=== PATIENT | female | born 1945 | race Caucasian/White ===

== ENCOUNTER 2016-11-19 16:01 | Observation (INO) | payer BC, OTHER ==
[~2016-11-19] VITALS: Ht 172.7 cm; Wt 69.7 kg
[~2016-11-19 16:01] MED LIST: ADVAIR 100/501 DISK IH; ADVAIR 250-501 EACH IH; ADVAIR 250/501 DISK IH; AEROECLIPSE1 EACH MC; ALBUTEROL17 GM IH; ALBUTEROL2.5 MG/3 M IH; ALEVE PM CAPLE1 EACH PO; ALEVE220 MG PO; AMBIEN10 MG PO; AMIODARONE HCL200 MG PO; AMLODIPINE BESYL5 MG PO; AMOX TR-K CLV1 EAC4 PO; ASPIR-LOW81 MG PO; ASPIRIN325 MG PO; ATIVAN0.5 MG PO; AZITHROMYCIN500 M1 PO; BACLOFEN10 MG PO; BENTYL20 MG PO; BLADDER MEDICATION PO; BREO ELLIPTA I1 EACH IH; CARAFATE1 GM PO; CEFDINIR300 MG PO; CELEBREX200 MG PO; CHANTIX1 MG PO; CIPRO500 MG PO; CIPROFLOXACIN500 M1 PO; CLOPIDOGREL75 MG PO; COLACE100 MG PO; CYCLOBENZAPRINE10 MG PO; DILAUDID2 MG PO; DOXYCYCLINE HY100 M3 PO; DOXYCYCLINE HY100 MG PO; DUONEB 2.5-0.5 M3 ML AEROSOL; DUONEB 2.5-0.5 M3 ML IH; ECOTRIN325 MG PO; EMS NITROSTAT0.4 M1 S; ESTRACE2 MG PO; EXALGO16 MG PO; Exalgo PO; FENOFIBRATE160 M1 PO; FLAGYL500 MG PO; FLEXERIL10 MG PO; FLUOXETINE HCL40 MG PO; FUROSEMIDE40 MG PO; IMDUR30 MG PO; IMDUR60 MG PO; INCRUSE ELLI62.5 MCG IH; ISOSORBIDE MONO60 MG PO; K-DUR10 MEQ PO; K-DUR20 MEQ PO; KADIAN60 MG PO; LASIX40 MG PO; LEVAQUIN250 MG PO; LEVAQUIN500 MG PO; LEVAQUIN750 MG PO; LEVOFLOXACIN750 MG PO; LIORESAL10 MG PO; LO-DOSE ASPIRIN81 M1 PO; LOFIBRA,TRIGLI160 MG PO; LOPRESSOR25 MG PO; LORAZEPAM0.5 MG PO; LYRICA100 MG PO; LYRICA75 MG PO; MEDROL DOSEPAK4 MG PO; METOPROLOL TART25 MG PO; MORPHINE SULFAT15 M1 PO; MORPHINE SULFAT15 MG PO; MORPHINE SULFAT30 M2 PO; MORPHINE SULFAT60 MG PO; MOTRIN IB200 MG PO; MS CONTIN,ORAMO60 MG PO; MUCINEX600 MG PO; NAPROSYN500 MG PO; NAPROXEN500 MG PO; NICODERM CQ1 EAC1 TD; NICOTINE PATCH1 EAC2 TD; NORVASC5 MG PO; Norvasc PO; OMEPRAZOLE20 MG PO; OMEPRAZOLE40 M1 PO; OXYCODONE HCL10 MG PO; OXYCODONE HCL15 MG PO; OXYCONTIN60 MG PO; PANTOPRAZOLE SO40 MG PO; PERCOCET 5-3251 EACH PO; PERCOCET 5/31 TABLET PO; PLAVIX75 MG PO; PRAVASTATIN SOD40 MG PO; PREDNISONE10 MG PO; PREDNISONE20 MG PO; PREDNISONE5 MG PO; PRILOSEC20 MG PO; PRILOSEC40 MG PO; PROAIR HFA8.5 GM IH; PROVENTIL HFA6.7 GM IH; PROVENTIL,2.5 MG/3 M IH; PROZAC40 MG PO; PYRIDIUM100 MG PO; RANITIDINE HCL300 MG PO; RESTORIL15 MG PO; RESTORIL30 MG PO; SENOKOT S,PE1 TABLET PO; SPIRIVA RESPIMAT4 GM IH; SPIRIVA1 INHALATI IH; TEMAZEPAM30 MG PO; TOPROL XL50 MG PO; TYLENOL EXTRA500 MG PO; VALIUM5 MG PO; VENTOLIN HFA18 GM IH; VYTORIN 10-401 EACH PO; VYTORIN 10/41 TABLET PO; XANAX0.25 MG PO; XANAX0.5 MG PO; ZANAFLEX4 M1 PO; ZANAFLEX4 MG PO; ZANTAC150 M1 PO; ZANTAC300 MG PO; ZOLOFT100 M1 PO; ZOLPIDEM TARTRA10 MG PO; Zantac PO
[2016-11-19 16:40] LABS: EOSINOPHIL (%) 0.2 % (0-5); HEMATOCRIT 43.6 % (36.0-46.0); IMMATURE GRANULOCYTE (%) 0.4 % (0.0-0.7); MCH 29.9 PG (29.0-34.0); MCHC 32.3 G/DL (30.0-36.0); MCV 92.6 FL (83-99); MEAN PLAT.VOLUME 11.3 uM^3 (9.5-12.4); MONOCYTE (%) 1.6 % (3-12); MONOCYTE COUNT 0.2 K/uL (0-0.8); NEUTROPHIL (%) 86.9 % (45-76); PLATELET COUNT 184 K/uL (156-360); RBC DIS.WIDTH-CV 13.1 % (11.8-14.6); RBC DIS.WIDTH-SD 44.7 % (39-53); RED BLOOD COUNT 4.71 M/uL (3.80-5.20); WHITE BLOOD COUNT 9.2 K/uL (4.1-10.2)
[2016-11-19 17:02] LABS: CHLORIDE 105 mEq/L (99-109); POTASSIUM 3.7 mEq/L (3.7-5.4); SODIUM 137 mEq/L (136-147)
[2016-11-19 17:03] LABS: GLUCOSE 109 mg/dL (70-99)
[2016-11-19 17:05] LABS: ANION GAP 9 MEQ/L (2-14)
[2016-11-19 17:07] LABS: GFR ESTIMATE (CALCULATED) > 59 mL/min/
[2016-11-19 17:08] LABS: UREA NITROGEN (BUN) 17 mg/dL (9-23)
[2016-11-19 17:12] LABS: TROP-I INTERPRETATION NEGATIVE; TROPONIN-I < 0.01 ng/mL (0.0-0.30)
[2016-11-19] MEDS ORDERED: ZOLOFT25 MG PO (18:26)
[2016-11-19 18:49] LABS: ADD MIUA? YES; BILIRUBIN NEGATIVE; BLOOD MODERATE; COLOR YELLOW ((YELLOW)); GLUCOSE (STRIP) NEGATIVE; KETONES 20; LEUKOCYTES TRACE; NITRITE POSITIVE; PROTEIN (STRIP) 30; SPECIFIC GRAVITY 1.016 (1.000-1.030); UROBILINOGEN 0.2 MG/DL (0.2-1.0)
[2016-11-19 19:11] LABS: CASTS PRESENT /LPF; EPITHELIAL CELLS 1+ /HPF; HYALINE CASTS RARE /LPF; MUCUS NONE SEEN /LPF
[2016-11-19 19:12] LABS: BACTERIA 4+ /HPF; WHITE BLOOD CELLS 0-5 /HPF (0-5)
[2016-11-19 22:18] VITALS: BP 133/80
[2016-11-20 00:45] VITALS: BP 122/61
[2016-11-20 04:00] VITALS: BP 138/62
[2016-11-20 08:35] VITALS: BP 154/67
[2016-11-20 12:18] VITALS: BP 141/73
[2016-11-20] MEDS ORDERED: LEVOFLOXACIN500 MG PO (15:41)
[2016-11-20] MEDS ORDERED: PRIMIDONE50 MG PO (16:19)
[2016-11-20 16:31] VITALS: BP 122/58
== END 2016-11-20 18:12 | disposition home or self-care (01) ==
LOC: EME 16:01 → EDOF 20:22 → 5WEST 20:22
PROVIDERS: Emergency Medicine
DX: R41.82 Altered mental status, unspecified (principal); N39.0 Urinary tract infection, site not specified; R53.1 Weakness; R47.81 Slurred speech; I25.10 Atherosclerotic heart disease of native coronary artery without angina pectoris; G89.4 Chronic pain syndrome; Z95.5 Presence of coronary angioplasty implant and graft; J44.9 Chronic obstructive pulmonary disease, unspecified; Z99.81 Dependence on supplemental oxygen; K21.9 Gastro-esophageal reflux disease without esophagitis; F17.200 Nicotine dependence, unspecified, uncomplicated; I45.10 Unspecified right bundle-branch block; E78.5 Hyperlipidemia, unspecified; M54.5 Low back pain; G25.0 Essential tremor
CPT/HCPCS: 70450; 71020; 80048; 81003; 83605; 84484; 85025; 87040; 87077; 87086; 87186; 93005; 93880; 94640; 94640 76; 94799; 99202; 99281; 99285; G0378; G8978 GP CJ; G8979 GP CI; G8980 CJ; G8987 GO CL; G8988 GO CH; G8989 GO CL; J1956; J7030

== ENCOUNTER 2016-11-27 11:55 | Inpatient (IN) | payer BC, OTHER ==
[~2016-11-27] VITALS: Ht 172.7 cm; Wt 73.2 kg
[~2016-11-27 11:55] MED LIST changes: +LEVOFLOXACIN500 MG PO; +PRIMIDONE50 MG PO; +ZOLOFT25 MG PO
[2016-11-27 13:01] LABS: BASE EXCESS 4.7 mEq/L (-3 to +3); BICARBONATE 31.8 mEq/L (22-26); CARBOXY HGB 3.4 % (0-5); METHEMOGLOBIN 0.8 % (0-1.5); PCO2 59 mm Hg (35-45); PO2 80 mm Hg (80-100); pH 7.34 (7.35-7.45)
[2016-11-27 13:02] LABS: COMMENTS - BLOOD GASES A+C+; DEVICE NV; O2 FLOW 1 L/MIN; SITE LR; TOTAL RESP RATE 12 resp/min
[2016-11-27 13:20] LABS: HEMATOCRIT 38.2 % (36.0-46.0); MCH 29.8 PG (29.0-34.0); MCHC 31.2 G/DL (30.0-36.0); MCV 95.5 FL (83-99); RBC DIS.WIDTH-CV 13.5 % (11.8-14.6); RBC DIS.WIDTH-SD 47.6 % (39-53); WHITE BLOOD COUNT 7.2 K/uL (4.1-10.2)
[2016-11-27 13:28] LABS: CHLORIDE 106 mEq/L (99-109); POTASSIUM 4.1 mEq/L (3.7-5.4); SODIUM 141 mEq/L (136-147)
[2016-11-27 13:30] LABS: GLUCOSE 92 mg/dL (70-99)
[2016-11-27 13:31] LABS: ANION GAP 7 MEQ/L (2-14)
[2016-11-27 13:34] LABS: GFR ESTIMATE (CALCULATED) > 59 mL/min/
[2016-11-27 13:35] LABS: TROP-I INTERPRETATION NEGATIVE; TROPONIN-I < 0.01 ng/mL (0.0-0.30); UREA NITROGEN (BUN) 8 mg/dL (9-23)
[2016-11-27 13:36] LABS: INTER. NORMALIZED RATIO 1.1; PROTHROMBIN TIME 11.1 (9.2-11.2); PTT 28.3 (25-32)
[2016-11-27 13:51] LABS: ADD MIUA? YES; BILIRUBIN NEGATIVE; BLOOD SMALL; COLOR YELLOW ((YELLOW)); GLUCOSE (STRIP) NEGATIVE; KETONES NEGATIVE; LEUKOCYTES NEGATIVE; NITRITE NEGATIVE; PROTEIN (STRIP) NEGATIVE; SPECIFIC GRAVITY 1.006 (1.000-1.030); UROBILINOGEN 0.2 MG/DL (0.2-1.0)
[2016-11-27 13:53] LABS: BACTERIA NONE SEEN /HPF; EPITHELIAL CELLS RARE /HPF; MUCUS TRACE /LPF; RED BLOOD CELLS 0-5 /HPF (0-5); WHITE BLOOD CELLS 0-5 /HPF (0-5)
[2016-11-27 14:07] LABS: MEAN PLAT.VOLUME 12.3 uM^3 (9.5-12.4); PLAT.SUFFICIENCY ADEQUATE; PLATELET COUNT 159 K/uL (156-360)
[2016-11-27 18:38] VITALS: BP 129/57
[2016-11-27 19:45] LABS: TROP-I INTERPRETATION NEGATIVE; TROPONIN-I < 0.01 ng/mL (0.0-0.30)
[2016-11-27 20:16] VITALS: BP 125/56
[2016-11-28 01:06] VITALS: BP 109/59
[2016-11-28 01:27] LABS: TROP-I INTERPRETATION NEGATIVE; TROPONIN-I < 0.01 ng/mL (0.0-0.30)
[2016-11-28 04:17] VITALS: BP 98/49
[2016-11-28 05:39] LABS: EOSINOPHIL (%) 3.8 % (0-5); EOSINOPHIL COUNT 0.2 K/uL (0-0.3); HEMATOCRIT 34.1 % (36.0-46.0); IMMATURE GRANULOCYTE (%) 0.3 % (0.0-0.7); INSTRUMENT ABS NEUTROPHIL CT 3.7 K/uL; LYMPHOCYTE COUNT 1.7 K/uL (1.0-2.8); MCH 29.7 PG (29.0-34.0); MCHC 31.4 G/DL (30.0-36.0); MCV 94.7 FL (83-99); MEAN PLAT.VOLUME 12.5 uM^3 (9.5-12.4); MONOCYTE (%) 5.4 % (3-12); MONOCYTE COUNT 0.3 K/uL (0-0.8); NEUTROPHIL (%) 61.6 % (45-76); NEUTROPHIL COUNT 3.7 K/uL (1.8-6.4); PLATELET COUNT 142 K/uL (156-360); RBC DIS.WIDTH-CV 13.4 % (11.8-14.6); RBC DIS.WIDTH-SD 46.6 % (39-53)
[2016-11-28 06:01] LABS: ANION GAP 5 MEQ/L (2-14); CHLORIDE 103 MEQ/L (99-109); GFR ESTIMATE (CALCULATED) > 59 mL/min/; GLUCOSE 94 mg/dL (70-99); HDL CHOLESTEROL 22 MG/DL (Desirable>=50); LDL CHOLESTEROL 84 mg/dL (Desirable<100); NON-HDL CHOLESTEROL 107 mg/dL (Desirable<160); POTASSIUM 3.8 MEQ/L (3.7-5.4); SAMPLE HEMOLYSIS CHECK 0; SAMPLE ICTERIC CHECK 0; SAMPLE LIPEMIA CHECK 0; SODIUM 138 MEQ/L (136-147); TOTAL CHOLESTEROL 129 mg/dL (Desirable<200); TRIGLYCERIDES 115 MG/DL (Normal: <150); UREA NITROGEN (BUN) 8 mg/dL (9-23)
[2016-11-28 06:42] LABS: Estimated Average Glucose 105 mg/dL (70-123); HEMOGLOBIN A1c (GLYCOHEMOGLOB) 5.3 % HGB (Below 5.7)
[2016-11-28 08:00] VITALS: BP 112/52
[2016-11-28 12:00] VITALS: BP 106/51
[2016-11-28 14:54] VITALS: BP 110/74
[2016-11-28 20:00] VITALS: BP 98/49
[2016-11-29] VITALS: BP 106/49
[2016-11-29 04:00] VITALS: BP 104/53
[2016-11-29 07:52] VITALS: BP 103/53
[2016-11-29 11:23] VITALS: BP 99/50
[2016-11-29 15:13] VITALS: BP 110/56
[2016-11-29 20:00] VITALS: BP 107/65
[2016-11-30] VITALS: BP 110/66
[2016-11-30 03:47] VITALS: BP 111/56
[2016-11-30 08:13] VITALS: BP 95/47
[2016-11-30 12:52] VITALS: BP 94/45
== END 2016-11-30 15:34 | disposition home health service (06) | DRG 948 ==
LOC: EME 11:55 → 5SOUTH 16:05 → EDOF 16:05 → 5SOUTH 17:51
PROVIDERS: Emergency Medicine; Physician Assistant
DX: R41.0 Disorientation, unspecified (principal); L89.210 Pressure ulcer of right hip, unstageable; L89.151 Pressure ulcer of sacral region, stage 1; J96.11 Chronic respiratory failure with hypoxia; I27.2 Other secondary pulmonary hypertension; R00.1 Bradycardia, unspecified; F11.20 Opioid dependence, uncomplicated; F41.9 Anxiety disorder, unspecified; J44.9 Chronic obstructive pulmonary disease, unspecified; Z99.81 Dependence on supplemental oxygen; I25.10 Atherosclerotic heart disease of native coronary artery without angina pectoris; I10 Essential (primary) hypertension; F17.210 Nicotine dependence, cigarettes, uncomplicated; R47.01 Aphasia; R62.7 Adult failure to thrive; Z95.5 Presence of coronary angioplasty implant and graft; G89.29 Other chronic pain; M54.9 Dorsalgia, unspecified; K21.9 Gastro-esophageal reflux disease without esophagitis; G43.909 Migraine, unspecified, not intractable, without status migrainosus; I25.2 Old myocardial infarction; F33.9 Major depressive disorder, recurrent, unspecified; G30.9 Alzheimer's disease, unspecified; F02.80 Dementia in other diseases classified elsewhere, unspecified severity, without behavioral disturbance, psychotic disturbance, mood disturbance, and anxiety; R53.1 Weakness; I44.0 Atrioventricular block, first degree; R25.1 Tremor, unspecified; I35.0 Nonrheumatic aortic (valve) stenosis; E78.5 Hyperlipidemia, unspecified; Z90.10 Acquired absence of unspecified breast and nipple; Z85.3 Personal history of malignant neoplasm of breast; Z87.81 Personal history of (healed) traumatic fracture; L89.510 Pressure ulcer of right ankle, unstageable; L89.891 Pressure ulcer of other site, stage 1; L89.621 Pressure ulcer of left heel, stage 1; L89.892 Pressure ulcer of other site, stage 2; R29.818 Other symptoms and signs involving the nervous system
CPT/HCPCS: 36600; 70450; 71010; 80048; 80061; 81003; 82803; 83036; 83605; 84484; 85025; 85027; 85610; 85730; 87040; 87086; 93005; 94640; 94640 76; 94799; 99202; 99281; 99285; J1650

== ENCOUNTER 2017-01-30 13:41 | Emergency (ER) | payer BC, OTHER ==
[~2017-01-30] VITALS: Ht 174 cm; Wt 68.1 kg
[2017-01-30 15:27] LABS: HEMATOCRIT 44.7 % (36.0-46.0); MCH 28.9 PG (29.0-34.0); MCHC 32.7 G/DL (30.0-36.0); MCV 88.3 FL (83-99); MEAN PLAT.VOLUME 10.9 uM^3 (9.5-12.4); PLATELET COUNT 214 K/uL (156-360); RBC DIS.WIDTH-CV 13.7 % (11.8-14.6); RBC DIS.WIDTH-SD 44.4 % (39-53); RED BLOOD COUNT 5.06 M/uL (3.80-5.20); WHITE BLOOD COUNT 8.5 K/uL (4.1-10.2)
[2017-01-30 15:46] LABS: TOTAL BILIRUBIN 0.3 mg/dL (0.0-1.0)
[2017-01-30 15:47] LABS: ALKALINE PHOSPHATASE 87 IU/L (3-129)
[2017-01-30 15:50] LABS: DIRECT BILIRUBIN 0.1 mg/dL (0.0-0.3)
[2017-01-30 15:51] LABS: LIPASE 17 U/L (1.0-51.0)
[2017-01-30] MEDS ORDERED: ULTRAM50 MG PO (19:30)
[2017-01-30 20:16] VITALS: BP 115/51
== END 2017-01-30 20:26 | disposition home or self-care (01) ==
LOC: EME 13:41
DX: R10.11 Right upper quadrant pain (principal); R07.9 Chest pain, unspecified; J44.9 Chronic obstructive pulmonary disease, unspecified; I10 Essential (primary) hypertension; I25.2 Old myocardial infarction; K21.9 Gastro-esophageal reflux disease without esophagitis; F17.200 Nicotine dependence, unspecified, uncomplicated
CPT/HCPCS: 76705; 80076; 83690; 85027; 93005; 99281; 99285; J7030

== ENCOUNTER 2017-02-01 14:45 | Emergency (ER) | payer BC, OTHER ==
[~2017-02-01] VITALS: Ht 172.7 cm; Wt 70.3 kg
[~2017-02-01 14:45] MED LIST changes: +ULTRAM50 MG PO
[2017-02-01 16:18] LABS: HEMATOCRIT 44.1 % (36.0-46.0); MCH 28.9 PG (29.0-34.0); MCHC 32.2 G/DL (30.0-36.0); MCV 89.6 FL (83-99); MEAN PLAT.VOLUME 10.6 uM^3 (9.5-12.4); PLATELET COUNT 255 K/uL (156-360); RBC DIS.WIDTH-CV 13.7 % (11.8-14.6); RBC DIS.WIDTH-SD 45.2 % (39-53); RED BLOOD COUNT 4.92 M/uL (3.80-5.20)
[2017-02-01 16:28] LABS: CHLORIDE 106 mEq/L (99-109)
[2017-02-01 16:29] LABS: SODIUM 141 mEq/L (136-147)
[2017-02-01 16:31] LABS: GLUCOSE 116 mg/dL (70-99)
[2017-02-01 16:32] LABS: ANION GAP 10 MEQ/L (2-14)
[2017-02-01 16:33] LABS: TOTAL BILIRUBIN 0.3 mg/dL (0.0-1.0)
[2017-02-01 16:34] LABS: ALKALINE PHOSPHATASE 89 IU/L (3-129); GFR ESTIMATE (CALCULATED) > 59 mL/min/
[2017-02-01 16:35] LABS: ADD MIUA? YES; BILIRUBIN NEGATIVE; BLOOD SMALL; COLOR YELLOW ((YELLOW)); GLUCOSE (STRIP) NEGATIVE; KETONES NEGATIVE; LEUKOCYTES TRACE; NITRITE NEGATIVE; PROTEIN (STRIP) 30; SPECIFIC GRAVITY 1.012 (1.000-1.030); UROBILINOGEN 0.2 MG/DL (0.2-1.0)
[2017-02-01 16:36] LABS: UREA NITROGEN (BUN) 12 mg/dL (9-23)
[2017-02-01 16:41] LABS: LIPASE 20 U/L (1.0-51.0)
[2017-02-01 16:41] LABS: BACTERIA NONE SEEN /HPF; EPITHELIAL CELLS RARE /HPF; HYALINE CASTS 0-5 /LPF; MUCUS TRACE /LPF; UCUL ADDED? NO
[2017-02-01] MEDS ORDERED: CIPRO500 MG PO (18:34)
[2017-02-01 19:54] VITALS: BP 156/63
== END 2017-02-01 19:26 | disposition home or self-care (01) ==
LOC: EME 14:45
DX: N39.0 Urinary tract infection, site not specified (principal); R10.12 Left upper quadrant pain; R07.81 Pleurodynia; J44.9 Chronic obstructive pulmonary disease, unspecified; Z95.5 Presence of coronary angioplasty implant and graft; Z79.02 Long term (current) use of antithrombotics/antiplatelets; Z79.82 Long term (current) use of aspirin; F17.200 Nicotine dependence, unspecified, uncomplicated
CPT/HCPCS: 71010; 74177; 80053; 81003; 83690; 85027; 93005; 99281; 99284; J2270; J7030

== ENCOUNTER 2017-05-11 17:05 | Observation (INO) | payer BC, OTHER ==
[~2017-05-11] VITALS: Ht 174 cm; Wt 67.5 kg
[2017-05-11 17:31] LABS: HEMATOCRIT 44.4 % (36.0-46.0); MCH 30.3 PG (29.0-34.0); MCHC 33.8 G/DL (30.0-36.0); MCV 89.7 FL (83-99); MEAN PLAT.VOLUME 12.1 uM^3 (9.5-12.4); PLATELET COUNT 107 K/uL (156-360); RBC DIS.WIDTH-CV 14.1 % (11.8-14.6); RBC DIS.WIDTH-SD 46.3 % (39-53); RED BLOOD COUNT 4.95 M/uL (3.80-5.20); WHITE BLOOD COUNT 6.8 K/uL (4.1-10.2)
[2017-05-11 17:45] LABS: CHLORIDE 107 mEq/L (99-109); POTASSIUM 3.5 mEq/L (3.7-5.4); SODIUM 138 mEq/L (136-147)
[2017-05-11 17:47] LABS: GLUCOSE 137 mg/dL (70-99)
[2017-05-11 17:48] LABS: ANION GAP 11 MEQ/L (2-14)
[2017-05-11 17:50] LABS: GFR ESTIMATE (CALCULATED) 58 mL/min/
[2017-05-11 17:51] LABS: UREA NITROGEN (BUN) 17 mg/dL (9-23)
[2017-05-11 17:52] LABS: TROP-I INTERPRETATION NEGATIVE; TROPONIN-I 0.01 ng/mL (0.0-0.30)
[2017-05-11 19:39] LABS: ADD MIUA? YES; BILIRUBIN NEGATIVE; BLOOD SMALL; COLOR YELLOW ((YELLOW)); GLUCOSE (STRIP) NEGATIVE; KETONES NEGATIVE; LEUKOCYTES NEGATIVE; NITRITE NEGATIVE; PROTEIN (STRIP) NEGATIVE; SPECIFIC GRAVITY 1.005 (1.000-1.030); UROBILINOGEN 0.2 MG/DL (0.2-1.0)
[2017-05-11 20:05] LABS: BACTERIA RARE /HPF; CASTS NONE SEEN /LPF; EPITHELIAL CELLS 2+ /HPF; MUCUS NONE SEEN /LPF; RED BLOOD CELLS 0-5 /HPF (0-5); WHITE BLOOD CELLS 0-5 /HPF (0-5)
[2017-05-11 20:06] LABS: CRYSTALS NONE SEEN
[2017-05-11] MEDS ORDERED: ELAVIL50 MG PO (20:36)
[2017-05-11] MEDS ORDERED: DITROPAN5 MG PO (20:36)
[2017-05-11] MEDS ORDERED: NAPROSYN500 MG PO (20:37)
[2017-05-11] MEDS ORDERED: MYSOLINE50 MG PO (20:39)
[2017-05-11] MEDS ORDERED: RESTORIL30 MG PO (20:42)
[2017-05-11] MEDS ORDERED: MORPHINE SULFAT15 MG PO (20:42)
[2017-05-11] MEDS ORDERED: SANTYL30 GM TP (20:43)
[2017-05-11] MEDS ORDERED: PROTONIX40 MG PO (20:44)
[2017-05-12 00:22] VITALS: BP 135/60
[2017-05-12 00:52] LABS: TROP-I INTERPRETATION NEGATIVE; TROPONIN-I 0.03 ng/mL (0.0-0.30)
[2017-05-12 04:00] VITALS: BP 110/77
[2017-05-12 06:23] LABS: HEMATOCRIT 38.8 % (36.0-46.0); MCH 29.9 PG (29.0-34.0); MCHC 32.5 G/DL (30.0-36.0); MCV 92.2 FL (83-99); MEAN PLAT.VOLUME 12.3 uM^3 (9.5-12.4); PLATELET COUNT 96 K/uL (156-360); RBC DIS.WIDTH-CV 14.2 % (11.8-14.6); RBC DIS.WIDTH-SD 47.8 % (39-53); RED BLOOD COUNT 4.21 M/uL (3.80-5.20); WHITE BLOOD COUNT 5.6 K/uL (4.1-10.2)
[2017-05-12 06:24] LABS: ALKALINE PHOSPHATASE 54 IU/L (3-129); ANION GAP 4 MEQ/L (2-14); CHLORIDE 115 MEQ/L (99-109); GFR ESTIMATE (CALCULATED) > 59 mL/min/; SAMPLE HEMOLYSIS CHECK 0; SAMPLE ICTERIC CHECK 0; SAMPLE LIPEMIA CHECK 0; SODIUM 143 MEQ/L (136-147); TOTAL BILIRUBIN 0.5 MG/DL (0.0-1.0); UREA NITROGEN (BUN) 15 mg/dL (9-23)
[2017-05-12 06:26] LABS: GLUCOSE 81 mg/dL (70-99); POTASSIUM 4.5 MEQ/L (3.7-5.4)
[2017-05-12 06:27] LABS: TROP-I INTERPRETATION NEGATIVE; TROPONIN-I 0.04 ng/mL (0.0-0.30)
[2017-05-12 07:17] LABS: Estimated Average Glucose 120 mg/dL (70-123); HEMOGLOBIN A1c (GLYCOHEMOGLOB) 5.8 % HGB (Below 5.7)
[2017-05-12] MEDS ORDERED: CLOPIDOGREL75 MG PO (11:55)
[2017-05-12] MEDS ORDERED: PRAVACHOL40 MG PO (11:56)
[2017-05-12 11:57] VITALS: BP 103/52
== END 2017-05-12 16:17 | disposition home or self-care (01) ==
LOC: EME 17:05 → EDOF 22:32 → 5WEST 22:32 → EDOF 22:32 → ENRESERV 22:34 → EDOF 05-12 00:13 → 5WEST 05-12 00:15
PROVIDERS: Internal Medicine; Nurse Practitioner Family
DX: I95.1 Orthostatic hypotension (principal); E87.6 Hypokalemia; I25.10 Atherosclerotic heart disease of native coronary artery without angina pectoris; Z95.5 Presence of coronary angioplasty implant and graft; I25.2 Old myocardial infarction; I10 Essential (primary) hypertension; J44.9 Chronic obstructive pulmonary disease, unspecified; Z99.81 Dependence on supplemental oxygen; F17.210 Nicotine dependence, cigarettes, uncomplicated; E78.00 Pure hypercholesterolemia, unspecified; I35.0 Nonrheumatic aortic (valve) stenosis; I34.0 Nonrheumatic mitral (valve) insufficiency; J84.10 Pulmonary fibrosis, unspecified; F41.9 Anxiety disorder, unspecified; F32.9 Major depressive disorder, single episode, unspecified; G89.29 Other chronic pain; M54.9 Dorsalgia, unspecified; Z85.3 Personal history of malignant neoplasm of breast; Z90.710 Acquired absence of both cervix and uterus; Z90.12 Acquired absence of left breast and nipple; Z79.82 Long term (current) use of aspirin; D69.6 Thrombocytopenia, unspecified; K21.9 Gastro-esophageal reflux disease without esophagitis
CPT/HCPCS: 70450; 71020; 80048; 80053; 81003; 83036; 84484; 85027; 93005; 94640; 94799; 99202; 99281; 99285; G0378; G8978 GP CH; G8979 GP CH; G8980 GP CH; G8987 GO CH; G8988 GO CH; G8989 GO CH; J1644; J7030

== ENCOUNTER 2017-06-08 12:32 | Inpatient (IN) | payer BC, OTHER ==
[~2017-06-08] VITALS: Ht 175.3 cm; Wt 65.9 kg
[~2017-06-08 12:32] MED LIST changes: +DITROPAN5 MG PO; +ELAVIL50 MG PO; +MYSOLINE50 MG PO; +PRAVACHOL40 MG PO; +PROTONIX40 MG PO; +SANTYL30 GM TP
[2017-06-08 13:42] LABS: BASE EXCESS -1.8 mEq/L (-3 to +3); BICARBONATE 24.3 mEq/L (22-26); CARBOXY HGB 2.9 % (0-5); METHEMOGLOBIN 1.3 % (0-1.5); PO2 58 mm Hg (80-100); pH 7.34 (7.35-7.45)
[2017-06-08 13:43] LABS: COMMENTS - BLOOD GASES A+C+; DEVICE NC; O2 FLOW 4 L/MIN; PCO2 45 mm Hg (35-45); SITE LR
[2017-06-08 14:30] LABS: ADD MIUA? YES; BILIRUBIN NEGATIVE; BLOOD LARGE; COLOR YELLOW ((YELLOW)); GLUCOSE (STRIP) NEGATIVE; KETONES NEGATIVE; LEUKOCYTES MODERATE; NITRITE POSITIVE; PROTEIN (STRIP) NEGATIVE; SPECIFIC GRAVITY 1.006 (1.000-1.030); UROBILINOGEN 0.2 MG/DL (0.2-1.0)
[2017-06-08 14:33] LABS: MCH 30.5 PG (29.0-34.0); MCHC 33.1 G/DL (30.0-36.0); MCV 92.1 FL (83-99); MEAN PLAT.VOLUME 11.4 uM^3 (9.5-12.4); PLATELET COUNT 108 K/uL (156-360); RBC DIS.WIDTH-CV 13.9 % (11.8-14.6); RBC DIS.WIDTH-SD 47.6 % (39-53); RED BLOOD COUNT 4.56 M/uL (3.80-5.20); WHITE BLOOD COUNT 13.3 K/uL (4.1-10.2)
[2017-06-08 14:35] LABS: BACTERIA 3+ /HPF; EPITHELIAL CELLS RARE /HPF; MUCUS TRACE /LPF; RED BLOOD CELLS 15-20 /HPF (0-5); UCUL ADDED? YES; WHITE BLOOD CELLS 15-20 /HPF (0-5)
[2017-06-08 14:40] LABS: INTER. NORMALIZED RATIO 1.4; PROTHROMBIN TIME 16.2 SEC (10.2-12.9)
[2017-06-08 14:43] LABS: CHLORIDE 112 mEq/L (99-109); PTT 33.2 SEC (25-37)
[2017-06-08 14:44] LABS: POTASSIUM 4.2 mEq/L (3.7-5.4); SODIUM 142 mEq/L (136-147)
[2017-06-08 14:46] LABS: GLUCOSE 126 mg/dL (70-99)
[2017-06-08 14:47] LABS: ANION GAP 8 MEQ/L (2-14)
[2017-06-08 14:48] LABS: TOTAL BILIRUBIN 0.5 mg/dL (0.0-1.0)
[2017-06-08 14:49] LABS: ALKALINE PHOSPHATASE 61 IU/L (3-129); GFR ESTIMATE (CALCULATED) > 59 mL/min/
[2017-06-08 14:51] LABS: UREA NITROGEN (BUN) 27 mg/dL (9-23)
[2017-06-08 14:57] LABS: TROP-I INTERPRETATION NEGATIVE; TROPONIN-I 0.04 ng/mL (0.0-0.30)
[2017-06-08 15:35] LABS: ABS NEUTROPHIL COUNT 12.6; ANISOCYTOSIS 1+; ATYPICAL LYMPHOCYTE 3.5 %; BAND NEUTROPHILS 61.1 % (0-8.0); EOSINOPHIL ABS CT 0; GIANT PLATELETS 1+; INSTRUMENT ABS NEUTROPHIL CT 11.7 K/uL; LYMPHOCYTES 1.8 % (15.0-45.0); MACROCYTES 1+; MICROCYTOSIS 1+; PLAT.SUFFICIENCY DECREASED; SEG.NEUTROPHILS 33.6 % (46.0-76.0); SPHEROCYTES 2+
[2017-06-08 20:41] LABS: BASE EXCESS 0.9 mEq/L (-3 to +3); BICARBONATE 25.3 mEq/L (22-26); CARBOXY HGB 2.6 % (0-5); METHEMOGLOBIN 1.5 % (0-1.5); PCO2 39 mm Hg (35-45); PO2 55 mm Hg (80-100); SITE RIGHT RAD; pH 7.42 (7.35-7.45)
[2017-06-08 20:42] LABS: COMMENTS - BLOOD GASES C+; DEVICE NCHH; FI02 40 %; O2 FLOW 40 L/MIN; TOTAL RESP RATE 18 resp/min
[2017-06-09] VITALS (11 sets, daily range): BP systolic 97–123; BP diastolic 41–74
[2017-06-09 06:16] LABS: EOSINOPHIL (%) 0.2 % (0-5); HEMATOCRIT 40.4 % (36.0-46.0); IMMATURE GRANULOCYTE (%) 0.9 % (0.0-0.7); IMMATURE GRANULOCYTE COUNT 0.1 K/uL; INSTRUMENT ABS NEUTROPHIL CT 10.9 K/uL; LYMPHOCYTE COUNT 1.3 K/uL (1.0-2.8); MCH 29.7 PG (29.0-34.0); MCHC 32.4 G/DL (30.0-36.0); MCV 91.6 FL (83-99); MEAN PLAT.VOLUME 11.9 uM^3 (9.5-12.4); MONOCYTE (%) 2.1 % (3-12); MONOCYTE COUNT 0.3 K/uL (0-0.8); NEUTROPHIL (%) 86.6 % (45-76); NEUTROPHIL COUNT 10.9 K/uL (1.8-6.4); PLATELET COUNT 107 K/uL (156-360); RBC DIS.WIDTH-CV 14.1 % (11.8-14.6); RBC DIS.WIDTH-SD 47.7 % (39-53); RED BLOOD COUNT 4.41 M/uL (3.80-5.20); WHITE BLOOD COUNT 12.6 K/uL (4.1-10.2)
[2017-06-09 09:01] LABS: INTER. NORMALIZED RATIO 1.3; PROTHROMBIN TIME 14.9 SEC (10.2-12.9)
[2017-06-09 09:04] LABS: PTT 33.3 SEC (25-37)
[2017-06-09 09:11] LABS: BASE EXCESS -2.2 mEq/L (-3 to +3); BICARBONATE 23.2 mEq/L (22-26); CARBOXY HGB 1.6 % (0-5); METHEMOGLOBIN 1.4 % (0-1.5); PCO2 41 mm Hg (35-45); PO2 57 mm Hg (80-100); SITE LR; pH 7.36 (7.35-7.45)
[2017-06-09 09:12] LABS: COMMENTS - BLOOD GASES A+C+; DEVICE NCHH; FI02 40 %; O2 FLOW 40 L/MIN; TOTAL RESP RATE 22 resp/min
[2017-06-09 09:47] LABS: TROP-I INTERPRETATION NEGATIVE; TROPONIN-I 0.03 ng/mL (0.0-0.30)
[2017-06-09 09:58] LABS: CHLORIDE 113 MEQ/L (99-109); GFR ESTIMATE (CALCULATED) > 59 mL/min/; GLUCOSE 95 mg/dL (70-99); POTASSIUM 4.3 MEQ/L (3.7-5.4); SODIUM 145 MEQ/L (136-147); UREA NITROGEN (BUN) 28 mg/dL (9-23)
[2017-06-09 10:52] LABS: METH RESISTANT S AUREUS PCR POSITIVE (NEGATIVE)
[2017-06-09 11:00] LABS: PROBE CHECK PASS
[2017-06-09 16:37] LABS: TROP-I INTERPRETATION NEGATIVE; TROPONIN-I 0.04 ng/mL (0.0-0.30)
[2017-06-09 21:07] LABS: TROP-I INTERPRETATION NEGATIVE; TROPONIN-I 0.04 ng/mL (0.0-0.30)
[2017-06-10] VITALS (7 sets, daily range): BP systolic 96–117; BP diastolic 49–59
[2017-06-10 04:53] LABS: EOSINOPHIL (%) 0 % (0-5); IMMATURE GRANULOCYTE (%) 1.2 % (0.0-0.7); IMMATURE GRANULOCYTE COUNT 0.1 K/uL; INSTRUMENT ABS NEUTROPHIL CT 7.1 K/uL; LYMPHOCYTE COUNT 0.5 K/uL (1.0-2.8); MCH 30.3 PG (29.0-34.0); MCV 91.8 FL (83-99); MEAN PLAT.VOLUME 12.2 uM^3 (9.5-12.4); MONOCYTE (%) 1.2 % (3-12); MONOCYTE COUNT 0.1 K/uL (0-0.8); NEUTROPHIL (%) 91.2 % (45-76); NEUTROPHIL COUNT 7.1 K/uL (1.8-6.4); PLATELET COUNT 96 K/uL (156-360); RBC DIS.WIDTH-CV 14.2 % (11.8-14.6); RBC DIS.WIDTH-SD 48.6 % (39-53); RED BLOOD COUNT 4.03 M/uL (3.80-5.20); WHITE BLOOD COUNT 7.8 K/uL (4.1-10.2)
[2017-06-10 05:17] LABS: CHLORIDE 111 mEq/L (99-109); POTASSIUM 4.1 mEq/L (3.7-5.4); SODIUM 141 mEq/L (136-147)
[2017-06-10 05:20] LABS: ANION GAP 7 MEQ/L (2-14)
[2017-06-10 05:22] LABS: ALKALINE PHOSPHATASE 66 IU/L (3-129)
[2017-06-10 05:23] LABS: GFR ESTIMATE (CALCULATED) > 59 mL/min/
[2017-06-10 05:24] LABS: UREA NITROGEN (BUN) 29 mg/dL (9-23)
[2017-06-10 05:26] LABS: GLUCOSE 185 mg/dL (70-99); TOTAL BILIRUBIN 0.2 mg/dL (0.0-1.0)
[2017-06-11 04:00] VITALS: BP 131/62
[2017-06-11 06:08] LABS: HEMATOCRIT 37.3 % (36.0-46.0); MCH 29.6 PG (29.0-34.0); MCHC 32.2 G/DL (30.0-36.0); MCV 91.9 FL (83-99); MEAN PLAT.VOLUME 11.8 uM^3 (9.5-12.4); PLATELET COUNT 114 K/uL (156-360); RBC DIS.WIDTH-SD 47.9 % (39-53); RED BLOOD COUNT 4.06 M/uL (3.80-5.20); WHITE BLOOD COUNT 13.6 K/uL (4.1-10.2)
[2017-06-11 08:02] VITALS: BP 126/60
[2017-06-11] MEDS ORDERED: CYCLOBENZAPRINE5 MG PO (10:46)
[2017-06-11] MEDS ORDERED: IMDUR60 MG PO (10:50)
[2017-06-11] MEDS ORDERED: NICOTINE PATCH1 EAC2 TD (10:51)
[2017-06-11 15:59] VITALS: BP 118/56
[2017-06-11 19:32] VITALS: BP 117/59
[2017-06-11 23:19] VITALS: BP 102/50
[2017-06-12 03:55] VITALS: BP 125/58
[2017-06-12 07:28] VITALS: BP 124/64
[2017-06-12] MEDS ORDERED: LEVOFLOXACIN750 MG PO (09:34)
[2017-06-12] MEDS ORDERED: INCRUSE ELLI62.5 MCG IH (09:34)
[2017-06-12] MEDS ORDERED: VENTOLIN HFA18 GM IH (09:35)
[2017-06-12] MEDS ORDERED: DUONEB 2.5-0.5 M3 ML AEROSOL (09:35)
[2017-06-12] MEDS ORDERED: PRADAXA150 MG PO ×2 (09:35→12:31)
[2017-06-12] MEDS ORDERED: DILTIAZEM 24HR120 MG PO (09:36)
[2017-06-12] MEDS ORDERED: ADVAIR 250/501 DISK IH (09:37)
[2017-06-12] MEDS ORDERED: PREDNISONE10 MG PO (09:41)
[2017-06-12] MEDS ORDERED: BACTROBAN CREAM15 GM TP (10:02)
[2017-06-12 11:35] VITALS: BP 122/68
== END 2017-06-12 13:21 | disposition home or self-care (01) | DRG 871 ==
LOC: EME 12:32 → 4WEST 16:49 → EDOF 16:49 → 5EAST 16:49 → ENRESERV 16:51 → 5EAST 19:35 → ENRESERV 06-09 08:24 → CANRESERV 06-09 08:24 → ENRESERV 06-09 08:27 → 4WEST 06-09 09:00 → ENRESERV 06-10 15:58 → 5EAST 06-10 17:06 → ENPENDDIS 06-12 → 5EAST 06-12 13:21
PROVIDERS: Emergency Medicine; Hospitalist; Internal Medicine
DX: A41.9 Sepsis, unspecified organism (principal); R65.20 Severe sepsis without septic shock; N39.0 Urinary tract infection, site not specified; B96.1 Klebsiella pneumoniae [K. pneumoniae] as the cause of diseases classified elsewhere; G93.41 Metabolic encephalopathy; J96.21 Acute and chronic respiratory failure with hypoxia; J44.1 Chronic obstructive pulmonary disease with (acute) exacerbation; J44.0 Chronic obstructive pulmonary disease with (acute) lower respiratory infection; J18.9 Pneumonia, unspecified organism; E87.2 Acidosis; I48.92 Unspecified atrial flutter; I25.10 Atherosclerotic heart disease of native coronary artery without angina pectoris; D69.6 Thrombocytopenia, unspecified; I10 Essential (primary) hypertension; E78.00 Pure hypercholesterolemia, unspecified; K21.9 Gastro-esophageal reflux disease without esophagitis; F32.9 Major depressive disorder, single episode, unspecified; F41.9 Anxiety disorder, unspecified; G43.909 Migraine, unspecified, not intractable, without status migrainosus; E78.5 Hyperlipidemia, unspecified; I35.0 Nonrheumatic aortic (valve) stenosis; I27.29 Other secondary pulmonary hypertension; I27.81 Cor pulmonale (chronic); I48.91 Unspecified atrial fibrillation; I47.1 Supraventricular tachycardia; G89.4 Chronic pain syndrome; M54.9 Dorsalgia, unspecified; R33.9 Retention of urine, unspecified; F17.210 Nicotine dependence, cigarettes, uncomplicated; Z99.81 Dependence on supplemental oxygen; Z95.5 Presence of coronary angioplasty implant and graft; Z85.3 Personal history of malignant neoplasm of breast; Z79.82 Long term (current) use of aspirin; I25.2 Old myocardial infarction; Z91.041 Radiographic dye allergy status; Z79.02 Long term (current) use of antithrombotics/antiplatelets; Z79.891 Long term (current) use of opiate analgesic
CPT/HCPCS: 36600; 70450; 71010; 78582; 80048; 80053; 81003; 82803; 83605; 83880; 84484; 85025; 85027; 85379; 85610; 85730; 87040; 87077; 87086; 87186; 87502; 87641; 87801; 93005; 93970; 94010; 94640; 94640 76; 94760; 94799; 99202; 99281; 99285; A9540; A9567; J1650; J1956; J2920; J2930; J3370; J7030; J7050; J7512

== ENCOUNTER 2017-07-31 16:50 | Inpatient (IN) | payer BC, OTHER ==
[~2017-07-31] VITALS: Ht 172.7 cm; Wt 66.2 kg
[~2017-07-31 16:50] MED LIST changes: +BACTROBAN CREAM15 GM TP; +CYCLOBENZAPRINE5 MG PO; +DILTIAZEM 24HR120 MG PO; +PRADAXA150 MG PO
[2017-07-31 17:53] LABS: HEMATOCRIT 47.3 % (36.0-46.0); HEMOGLOBIN 15.9 G/DL (11.9-15.5); MCH 29.7 PG (29.0-34.0); MCHC 33.6 G/DL (30.0-36.0); MCV 88.4 FL (83-99); PLATELET COUNT 195 K/uL (156-360); RBC DIS.WIDTH-CV 13.5 % (11.8-14.6); RED BLOOD COUNT 5.35 M/uL (3.80-5.20); WHITE BLOOD COUNT 12.1 K/uL (4.1-10.2)
[2017-07-31 18:02] LABS: ALBUMIN 3.6 g/dL (3.2-4.8); CHLORIDE 106 mEq/L (99-109); POTASSIUM 4.6 mEq/L (3.7-5.4); SODIUM 137 mEq/L (136-147)
[2017-07-31 18:04] LABS: GLUCOSE 129 mg/dL (70-99); TOTAL PROTEIN 6.7 g/dL (6.4-8.3)
[2017-07-31 18:06] LABS: TOTAL BILIRUBIN 0.4 mg/dL (0.0-1.0)
[2017-07-31 18:08] LABS: ALKALINE PHOSPHATASE 86 IU/L (3-129); CREATININE 0.8 mg/dL (0.6-1.3); GFR ESTIMATE (CALCULATED) > 59 mL/min/
[2017-07-31 18:09] LABS: UREA NITROGEN (BUN) 13 mg/dL (9-23)
[2017-07-31 18:10] LABS: AST (GOT) 14 IU/L (2-34)
[2017-07-31 18:11] LABS: ALT (GPT) 9 IU/L (3-49)
[2017-07-31 19:08] LABS: LIPASE 17 U/L (1.0-51.0)
[2017-07-31 21:31] LABS: APPEARANCE CLEAR ((CLEAR)); BILIRUBIN NEGATIVE; BLOOD SMALL; COLOR YELLOW ((YELLOW)); GLUCOSE (STRIP) NEGATIVE; KETONES NEGATIVE; LEUKOCYTES NEGATIVE; NITRITE NEGATIVE; PROTEIN (STRIP) NEGATIVE; SPECIFIC GRAVITY 1.024 (1.000-1.030); UROBILINOGEN 0.2 MG/DL (0.2-1.0)
[2017-07-31 21:35] LABS: BACTERIA NONE SEEN /HPF; EPITHELIAL CELLS RARE /HPF; MUCUS NONE SEEN /LPF; RED BLOOD CELLS 15-20 /HPF (0-5); UCUL ADDED? NO; WHITE BLOOD CELLS 0-5 /HPF (0-5)
[2017-08-01] MEDS ORDERED: PRADAXA150 MG PO (00:28)
[2017-08-01] MEDS ORDERED: DILTIAZEM 24HR120 MG PO (00:29)
[2017-08-01] MEDS ORDERED: NAPROSYN500 MG PO (00:30)
[2017-08-01 02:39] VITALS: BP 117/57
[2017-08-01 12:05] VITALS: BP 82/46
[2017-08-01 14:33] VITALS: BP 88/52
[2017-08-01 17:05] VITALS: BP 86/48
[2017-08-01 20:02] VITALS: BP 90/50
[2017-08-01 23:23] VITALS: BP 89/47
[2017-08-02 10:22] LABS: BASOPHIL (%) 0.3 % (0-1); EOSINOPHIL (%) 4.9 % (0-5); EOSINOPHIL COUNT 0.3 K/uL (0-0.3); HEMATOCRIT 36.3 % (36.0-46.0); IMMATURE GRANULOCYTE (%) 0.2 % (0.0-0.7); LYMPHOCYTE (%) 42.9 % (15-42); LYMPHOCYTE COUNT 2.6 K/uL (1.0-2.8); MCH 29.9 PG (29.0-34.0); MONOCYTE (%) 5.1 % (3-12); MONOCYTE COUNT 0.3 K/uL (0-0.8); NEUTROPHIL (%) 46.6 % (45-76); NEUTROPHIL COUNT 2.8 K/uL (1.8-6.4); RBC DIS.WIDTH-SD 47.8 % (39-53); WHITE BLOOD COUNT 6.1 K/uL (4.1-10.2)
[2017-08-02 10:29] LABS: HEMOGLOBIN 11.6 G/DL (11.9-15.5); MCV 93.6 FL (83-99); RED BLOOD COUNT 3.88 M/uL (3.80-5.20)
[2017-08-02 10:36] LABS: CHLORIDE 109 MEQ/L (99-109); CREATININE 0.8 MG/DL (0.6-1.3); GFR ESTIMATE (CALCULATED) > 59 mL/min/; GLUCOSE 88 mg/dL (70-99); POTASSIUM 4.1 MEQ/L (3.7-5.4); SODIUM 140 MEQ/L (136-147); UREA NITROGEN (BUN) 15 mg/dL (9-23)
[2017-08-02 10:38] LABS: PLAT.SUFFICIENCY DECREASED
[2017-08-02 10:46] LABS: PLATELET COUNT 126 K/uL (156-360)
[2017-08-02 11:01] VITALS: BP 94/50
[2017-08-02 16:11] VITALS: BP 106/5
[2017-08-02 20:45] VITALS: BP 118/58
[2017-08-02 22:59] VITALS: BP 109/54
[2017-08-03 12:42] VITALS: BP 116/59
[2017-08-03 12:43] VITALS: BP 116/59; BP 180/90
[2017-08-03] MEDS ORDERED: LEVOFLOXACIN750 MG PO (13:55)
[2017-08-03] MEDS ORDERED: SEROQUEL50 MG PO (16:50)
== END 2017-08-03 18:34 | disposition home or self-care (01) | DRG 194 ==
LOC: EME 16:50 → EDOF 08-01 00:02 → ENRESERV 08-01 00:04 → 5WEST 08-01 01:23 → ENPENDDIS 08-03 → 5WEST 08-03 18:34
PROVIDERS: Hospitalist
DX: J18.9 Pneumonia, unspecified organism (principal); J98.11 Atelectasis; I48.92 Unspecified atrial flutter; L97.322 Non-pressure chronic ulcer of left ankle with fat layer exposed; E87.2 Acidosis; F33.9 Major depressive disorder, recurrent, unspecified; L97.422 Non-pressure chronic ulcer of left heel and midfoot with fat layer exposed; L97.413 Non-pressure chronic ulcer of right heel and midfoot with necrosis of muscle; J43.9 Emphysema, unspecified; K21.9 Gastro-esophageal reflux disease without esophagitis; K59.09 Other constipation; K52.9 Noninfective gastroenteritis and colitis, unspecified; K29.70 Gastritis, unspecified, without bleeding; K29.80 Duodenitis without bleeding; I73.9 Peripheral vascular disease, unspecified; I71.4 Abdominal aortic aneurysm, without rupture; I70.8 Atherosclerosis of other arteries; I71.2 Thoracic aortic aneurysm, without rupture; I70.0 Atherosclerosis of aorta; I48.2 Chronic atrial fibrillation; I70.1 Atherosclerosis of renal artery; I47.1 Supraventricular tachycardia; I34.0 Nonrheumatic mitral (valve) insufficiency; I27.81 Cor pulmonale (chronic); I25.10 Atherosclerotic heart disease of native coronary artery without angina pectoris; I10 Essential (primary) hypertension; G89.29 Other chronic pain; F41.9 Anxiety disorder, unspecified; F17.210 Nicotine dependence, cigarettes, uncomplicated; E86.0 Dehydration; E78.5 Hyperlipidemia, unspecified; D75.1 Secondary polycythemia; K27.9 Peptic ulcer, site unspecified, unspecified as acute or chronic, without hemorrhage or perforation; I35.0 Nonrheumatic aortic (valve) stenosis; Z99.81 Dependence on supplemental oxygen; Z95.5 Presence of coronary angioplasty implant and graft; Z90.710 Acquired absence of both cervix and uterus; Z90.12 Acquired absence of left breast and nipple; Z83.3 Family history of diabetes mellitus; Z82.49 Family history of ischemic heart disease and other diseases of the circulatory system; I25.2 Old myocardial infarction
CPT/HCPCS: 71275; 73630; 74174; 80048; 80053; 81003; 83605; 83690; 85025; 85027; 87040; 87449; 87493; 87641; 94640; 94640 76; 94799; 99202; 99281; 99285; G0378; J0744; J1170; J1956; J2405; J3010; J7030; S0030

== ENCOUNTER → 2017-09-16 | Outpatient (CLI) | payer BC, MEDICARE ==
[~2017-09-16] MED LIST changes: +SEROQUEL50 MG PO
== END | disposition home or self-care (01) ==
LOC: CDC 11:09
DX: Z01.810 Encounter for preprocedural cardiovascular examination (principal); I45.2 Bifascicular block
CPT/HCPCS: 93000

== ENCOUNTER 2017-11-27 12:28 | Emergency (ER) | payer BC, OTHER ==
[~2017-11-27] VITALS: Ht 175.3 cm; Wt 66.9 kg
[2017-11-27 13:08] LABS: HEMATOCRIT 37.3 % (36.0-46.0); HEMOGLOBIN 12.8 G/DL (11.9-15.5); MCH 30.5 PG (29.0-34.0); MCHC 34.3 G/DL (30.0-36.0); PLATELET COUNT 145 K/uL (156-360); RBC DIS.WIDTH-CV 13.7 % (11.8-14.6); RBC DIS.WIDTH-SD 44.7 % (39-53); RED BLOOD COUNT 4.19 M/uL (3.80-5.20); WHITE BLOOD COUNT 6.9 K/uL (4.1-10.2)
[2017-11-27 13:14] LABS: APPEARANCE SL.HAZY ((CLEAR)); BILIRUBIN MODERATE; BLOOD SMALL; COLOR YELLOW ((YELLOW)); GLUCOSE (STRIP) NEGATIVE; KETONES 5; LEUKOCYTES NEGATIVE; NITRITE POSITIVE; PROTEIN (STRIP) 30; SPECIFIC GRAVITY 1.021 (1.000-1.030); UROBILINOGEN 0.2 MG/DL (0.2-1.0)
[2017-11-27 13:17] LABS: ICTOTEST ND
[2017-11-27 13:17] LABS: CHLORIDE 111 mEq/L (99-109); POTASSIUM 3.5 mEq/L (3.7-5.4); SODIUM 145 mEq/L (136-147)
[2017-11-27 13:19] LABS: GLUCOSE 154 mg/dL (70-99)
[2017-11-27 13:19] LABS: BACTERIA RARE /HPF; EPITHELIAL CELLS RARE /HPF; MUCUS TRACE /LPF; RED BLOOD CELLS 0-5 /HPF (0-5); UCUL ADDED? NO; WHITE BLOOD CELLS 0-5 /HPF (0-5)
[2017-11-27 13:23] LABS: CREATININE 0.9 mg/dL (0.6-1.3); GFR ESTIMATE (CALCULATED) > 59 mL/min/
[2017-11-27 13:24] LABS: UREA NITROGEN (BUN) 28 mg/dL (9-23)
[2017-11-27 13:29] LABS: TROP-I INTERPRETATION NEGATIVE; TROPONIN-I 0.02 ng/mL (0.0-0.30)
[2017-11-27] MEDS ORDERED: CIPRO500 MG PO (14:35)
[2017-11-27 15:30] VITALS: BP 120/62
== END 2017-11-27 18:08 | disposition home or self-care (01) ==
LOC: EME 12:28
PROVIDERS: Emergency Medicine
DX: N39.0 Urinary tract infection, site not specified (principal); R41.0 Disorientation, unspecified; J44.9 Chronic obstructive pulmonary disease, unspecified; Z99.81 Dependence on supplemental oxygen; F17.200 Nicotine dependence, unspecified, uncomplicated; I10 Essential (primary) hypertension; I25.2 Old myocardial infarction; F41.9 Anxiety disorder, unspecified; F32.9 Major depressive disorder, single episode, unspecified; K21.9 Gastro-esophageal reflux disease without esophagitis; Z95.5 Presence of coronary angioplasty implant and graft
CPT/HCPCS: 71045; 80048; 81003; 83605; 84484; 85027; 87040; 93005; 99281; 99285; J1956

== ENCOUNTER 2018-02-12 15:14 | Emergency (ER) | payer BC, OTHER ==
[~2018-02-12] VITALS: Ht 162.6 cm; Wt 72.4 kg
[2018-02-12 15:50] LABS: COMMENTS - BLOOD GASES +C; DEVICE NC; O2 FLOW 3.5 L/MIN; PCO2 31 mm Hg (35-45); PO2 88 mm Hg (80-100); SITE LR +A; TOTAL RESP RATE 32 resp/min; pH 7.41 (7.35-7.45)
[2018-02-12 15:51] LABS: BASE EXCESS -3.8 mEq/L (-3 to +3); BICARBONATE 19.6 mEq/L (22-26); CARBOXY HGB 2.2 % (0-5); METHEMOGLOBIN 0.7 % (0-1.5); O2 SATURATION (CALCULATED) 97.1 % (95-99)
[2018-02-12 16:20] LABS: BASOPHIL (%) 0.2 % (0-1); EOSINOPHIL (%) 0.1 % (0-5); HEMOGLOBIN 16.6 G/DL (11.9-15.5); IMMATURE GRANULOCYTE (%) 0.7 % (0.0-0.7); LYMPHOCYTE (%) 9.8 % (15-42); LYMPHOCYTE COUNT 1.5 K/uL (1.0-2.8); MCH 30.5 PG (29.0-34.0); MCHC 33.9 G/DL (30.0-36.0); MCV 89.9 FL (83-99); MONOCYTE (%) 4.5 % (3-12); MONOCYTE COUNT 0.7 K/uL (0-0.8); NEUTROPHIL (%) 84.7 % (45-76); NEUTROPHIL COUNT 12.6 K/uL (1.8-6.4); PLATELET COUNT 204 K/uL (156-360); RBC DIS.WIDTH-CV 14.2 % (11.8-14.6); RBC DIS.WIDTH-SD 46.7 % (39-53); RED BLOOD COUNT 5.45 M/uL (3.80-5.20); WHITE BLOOD COUNT 14.9 K/uL (4.1-10.2)
[2018-02-12 16:33] LABS: ALBUMIN 3.9 g/dL (3.2-4.8); CHLORIDE 103 mEq/L (99-109); POTASSIUM 4.8 mEq/L (3.7-5.4); SODIUM 140 mEq/L (136-147)
[2018-02-12 16:35] LABS: GLUCOSE 127 mg/dL (70-99); TOTAL PROTEIN 7.7 g/dL (6.4-8.3)
[2018-02-12 16:37] LABS: TOTAL BILIRUBIN 0.7 mg/dL (0.0-1.0)
[2018-02-12 16:38] LABS: SERUM ETHYL ALCOHOL < 10 mg/dL
[2018-02-12 16:39] LABS: ALKALINE PHOSPHATASE 96 IU/L (3-129); CREATININE 1.3 mg/dL (0.6-1.3); GFR ESTIMATE (CALCULATED) 43 mL/min/
[2018-02-12 16:40] LABS: UREA NITROGEN (BUN) 35 mg/dL (9-23)
[2018-02-12 16:41] LABS: AST (GOT) 135 IU/L (2-34)
[2018-02-12 16:42] LABS: ALT (GPT) 51 IU/L (3-49)
[2018-02-12 16:50] LABS: APPEARANCE CLOUDY ((CLEAR)); BILIRUBIN MODERATE; BLOOD LARGE; COLOR AMBER ((YELLOW)); GLUCOSE (STRIP) NEGATIVE; KETONES NEGATIVE; LEUKOCYTES TRACE; NITRITE NEGATIVE; PROTEIN (STRIP) 30; SPECIFIC GRAVITY 1.025 (1.000-1.030)
[2018-02-12 16:52] LABS: ICTOTEST ND
[2018-02-12 16:59] LABS: AMPHETAMINE NEGATIVE (500 ng/mL); BARBITURATES PRESUMPTIVE POSITIVE (200 ng/mL); BENZODIAZEPINES PRESUMPTIVE POSITIVE (150 ng/mL); BUPRENORPHINE NEGATIVE (10 ng/mL); COCAINE NEGATIVE (150 ng/mL); METHADONE NEGATIVE (200 ng/mL); METHAMPHETAMINE PRESUMPTIVE POSITIVE (500 ng/mL); OPIATES (MORPHINE) PRESUMPTIVE POSITIVE (100 ng/mL); OXYCODONE NEGATIVE (100 ng/mL); PHENCYCLIDINE NEGATIVE (25 ng/mL); PROPOXYPHENE NEGATIVE (300 ng/mL); THC CANNABINOIDS NEGATIVE (50 ng/mL); TRICYCLIC ANTIDEPRESSANTS PRESUMPTIVE POSITIVE (300 ng/mL)
[2018-02-12 17:07] LABS: BACTERIA 3+ /HPF; EPITHELIAL CELLS 2+ /HPF; MUCUS NONE SEEN /LPF; RED BLOOD CELLS RARE /HPF (0-5); UCUL ADDED? YES; WHITE BLOOD CELLS RARE /HPF (0-5)
[2018-02-12 17:31] LABS: BENZODIAZEPINES, URINE SCREEN POSITIVE (200 ng/mL)
[2018-02-12 18:13] LABS: COMMENTS - BLOOD GASES A+C+; DEVICE PB 840; FI02 30 %; MECHANICAL RATE 18 resp/min; MODE AC; SITE RR
[2018-02-12 18:14] LABS: BICARBONATE 19.5 mEq/L (22-26); CARBOXY HGB 1.9 % (0-5); INSPIRATION TIME 0.9 seconds; METHEMOGLOBIN 0.8 % (0-1.5); O2 SATURATION (CALCULATED) 94.6 % (95-99); PCO2 33 mm Hg (35-45); PEEP 5 CM/H20; PO2 70 mm Hg (80-100); TIDAL VOLUME 440 ML; TOTAL RESP RATE 22 resp/min; pH 7.38 (7.35-7.45)
[2018-02-12 18:15] LABS: BASE EXCESS -4.7 mEq/L (-3 to +3)
[2018-02-12 18:32] LABS: CREATINE KINASE 10015 IU/L (1-294)
[2018-02-12 22:45] LABS: TROP-I INTERPRETATION NEGATIVE; TROPONIN-I 0.07 ng/mL (0.0-0.30)
[2018-02-13 00:07] VITALS: BP 138/81
== END 2018-02-13 00:25 | disposition short-term general hospital (02) ==
LOC: EME 15:14
PROVIDERS: Emergency Medicine
PROC: 0BH17EZ Insertion of Endotracheal Airway into Trachea, Via Natural or Artificial Opening (ICD-10-PCS; principal; 2018-02-12)
PROC: 5A0935Z Assistance with Respiratory Ventilation, Less than 24 Consecutive Hours (ICD-10-PCS; principal; 2018-02-12)
DX: R41.82 Altered mental status, unspecified (principal); J96.90 Respiratory failure, unspecified, unspecified whether with hypoxia or hypercapnia; A41.9 Sepsis, unspecified organism; M62.82 Rhabdomyolysis; F19.10 Other psychoactive substance abuse, uncomplicated; G93.41 Metabolic encephalopathy; G89.29 Other chronic pain; Z79.891 Long term (current) use of opiate analgesic; J44.9 Chronic obstructive pulmonary disease, unspecified; I10 Essential (primary) hypertension; I25.2 Old myocardial infarction; Z95.5 Presence of coronary angioplasty implant and graft; Z79.82 Long term (current) use of aspirin; Z99.81 Dependence on supplemental oxygen; F17.200 Nicotine dependence, unspecified, uncomplicated
CPT/HCPCS: 36600; 70450; 71045; 80053; 81003; 82140; 82550; 82948; 83605; 84484; 84999; 85025; 87040; 87077; 87086; 87186; 93005; 94002; G0480; J0330; J1956; J2310; J2704; J3370; J7030